=== PATIENT | male | born 2005 | race Caucasian/White ===

== ENCOUNTER 2024-08-12 15:22 | Observation (INO) | payer BC ==
[2024-08-12] VITALS (14 sets, daily range): BP systolic 114–146; BP diastolic 61–86
[~2024-08-12] VITALS: Ht 188 cm; Wt 145.2 kg
[2024-08-12 16:22] LABS: BASOPHILS ABSOLUTE AUTO 0.05 K/mm3 (0.00-0.23); BASOPHILS PERCENT AUTO 0 % (0-2); EOSINOPHILS ABSOLUTE AUTO 0.05 K/mm3 (0.00-0.68); EOSINOPHILS PERCENT AUTO 0 % (0-6); Hematocrit 42.7 % (37.0-53.0); Hemoglobin 15.2 g/dL (13.5-17.5); IMMATURE GRAN ABSOLUTE AUTO 0.06 K/mm3 (0.00-0.10); IMMATURE GRAN PERCENT AUTO 0 % (0-1); LYMPHOCYTES ABSOLUTE AUTO 2.07 K/mm3 (0.84-5.20); LYMPHOCYTES PERCENT AUTO 14 % (21-46); MONOCYTES ABSOLUTE AUTO 1.06 K/mm3 (0.16-1.47); MONOCYTES PERCENT AUTO 7 % (4-13); Mean Corpuscular HGB 30.5 pg (26.0-34.0); Mean Corpuscular HGB Conc 35.6 g/dL (31.5-36.5); Mean Corpuscular Volume 86 fL (80-100); Mean Platelet Volume 10.1 fL (9.1-12.4); NEUTROPHILS ABSOLUTE AUTO 11.88 K/mm3 (1.96-9.15); NEUTROPHILS PERCENT AUTO 78 % (41-73); Platelet Count 223 K/mm3 (150-400); RDW Coefficient Variation 12.4 % (11.7-14.2); RDW Standard Deviation 38.8 fL (35.1-46.3); Red Blood Cell Count 4.98 M/mm3 (4.30-5.90); White Blood Cell Count 15.17 K/mm3 (4.00-11.30)
[2024-08-12] MEDS ORDERED: NS 1,000 ML IV SCH (16:25)
[2024-08-12] MEDS ORDERED: Ketorolac Tromethamine 15mg Vial IV ONE (16:25)
[2024-08-12] MEDS ORDERED: Ampicillin Sod/Sulbactam Sod 3 GM in NS 100 ML IV ONE (16:25)
[2024-08-12 16:51] LABS: Albumin, Blood 3.8 g/dL (3.4-5.0); Albumin/Globulin Ratio 1.1 (0.8-1.8); Bilirubin, Total 1.1 mg/dL (0.1-1.0); Bun/Creatinine Ratio 15.1 (12.0-20.0); Calcium, Blood 9.1 mg/dL (8.5-10.1); Creatinine, Blood 0.73 mg/dL (0.60-1.20); Globulin, Blood 3.4 g/dL (2.2-4.0); Potassium, Blood 3.8 mmol/L (3.5-5.5); Total Protein, Blood 7.2 g/dL (6.4-8.2)
[2024-08-12] MEDS ORDERED: Bupivacaine 0.5% HCl 5 MG/ML 30MLVIAL ONE (17:12)
[2024-08-12] MEDS ORDERED: Acetaminophen 325 MG TABLET PO PRN (17:25)
[2024-08-12] MEDS ORDERED: FLU VACC TS2024-25(6MOS UP)/PF 45 MCG/0.5 ML SYRINGE IM SCH (17:30)
[2024-08-12] MEDS ORDERED: HYDROmorphone HCl/Pf 1MG SYR IV PRN (17:30)
[2024-08-12] MEDS ORDERED: OxyCODONE HCL 5 MG TAB PO PRN (17:30)
[2024-08-12] MEDS ORDERED: Ondansetron HCl 2 MG / ML 2ML Vial IV PRN (17:30)
[2024-08-12] MEDS ORDERED: Lactated Ringer's 1,000 ML IV SCH (17:30)
[2024-08-12] MEDS ORDERED: Lactated Ringer's 1,000 ML IV ONE (17:37)
[2024-08-12] MEDS ORDERED: Ketorolac Tromethamine 15mg Vial IV PRN (17:40)
[2024-08-12] MEDS ORDERED: Midazolam HCl 1MG / ML 2ML Vial ONE (17:48)
[2024-08-12] MEDS ORDERED: FentaNYL Citrate 50 MCG/ML 2 ML Injection ONE (17:48)
[2024-08-12] MEDS ORDERED: propofoL 40 ML IV ONE (17:48)
[2024-08-12] MEDS ORDERED: Ondansetron HCl 2 MG / ML 2ML Vial ONE (18:08)
[2024-08-12] MEDS ORDERED: Dexamethasone Sod Phos 10 MG/ML 1ML VIAL ONE (18:08)
[2024-08-12] MEDS ORDERED: Ketorolac Tromethamine 30mg Vial ONE (18:21)
[2024-08-12] MEDS ORDERED: Rocuronium Bromide 10 MG/ML 5ML Injection IV ONE (18:21)
[2024-08-12] MEDS ORDERED: Sugammadex Sodium 200 MG/2ML SDV (100 MG/ML) ONE (18:30)
--- NOTE | 2024-08-12 19:53 | NUR ---
PT ARRIVED FROM PACU A/O X4. PT TX SELF TO BED FROM [facility], REP MILD DIZZINESS WHEN FIRST UP. VSS, LUNGS CLEAR T/O. LAP SITES X3 TO ABD CDI W/EXOFEN STEPH, NO DRNG NOTED, ABD SOFT TO PALP. PT REP ABD PAIN 3/10, REP MIGUEL AT THIS TIME. PT ORIENTED TO ROOM CALL LIGHT, FAMILY IN ROOM.
[2024-08-12] MEDS ORDERED: Sennosides 8.6 MG Tab PO SCH (21:00)
[2024-08-13] VITALS: BP 120/63
--- NOTE | 2024-08-13 07:02 | NUR ---
POD 1 S/P LAP APPY. PT VSS T/O NIGHT. INCISIONS CDI, ABD SOFT TO PALP. PT REP PAIN MIGUEL 11/25, DECLINED NEED FOR PAIN MEDS. PT MIGUEL SM AMT PO, DENIED N/V, REP +FLATUS THIS AM, IS VOIDING URINE W/O DIFFICULTY. PLAN TO D/C HOME TODAY.
[2024-08-13] MEDS ORDERED: OXYC5 PO (08:23)
--- NOTE | 2024-08-13 08:51 | NUR ---
DISCHARGE NOTE THIS RN ASSUMED CARE AT APPROX 0715. PATIENT ALERT AND ORIENTED X4. COMMUNICATES NEEDS EFFECTIVELY. VSS. TOLERATING ROOM AIR, SATs >90%. RR EVEN, UNLABORED. POD 1 LAP APPY - X3 LAP SITES C/D/I. PAIN TOLERABLE. TOLERATING PO INTAKE. REPORTS FLATULENCE. VOIDING. MD ROBLERO ROUNDING THIS MORNING - DC ORDERED. IV REMOVED. DC EDUCATION PROVIDED - PATIENT AND HIS MOTHER STATE UNDERSTANDING. ASKS QUESTIONS NEEDED TO GAIN FURTHER UNDERSTANDING. HARD SCRIPT FOR PRESCRIBED NARCOTIC PROVIDED. PATIENT TRANSFERRED OFF UNIT TO PERSONAL VEHICLE VIA WHEELCHAIR AT APPROX 0845. PERSONAL BELONGINGS WITH PATIENT.
== END 2024-08-13 08:54 | disposition home or self-care (01) ==
LOC: ER 15:22 → SURS 17:25 → ER 17:40 → SURS 19:35
PROVIDERS: Student in an Organized Health Care Education/Training Program; ADMIT Surgery
PROC: 0DTJ4ZZ Resection of Appendix, Percutaneous Endoscopic Approach (ICD-10-PCS; principal; 2024-08-12 17:00)
DX: K35.30 Acute appendicitis with localized peritonitis, without perforation or gangrene (principal); K38.0 Hyperplasia of appendix
CPT/HCPCS: 80053; 85025; 88304; 96374-59; 96375; 99285-25; A9270; J0295; J1100; J1885; J2250; J2405; J2704; J3010; J7030; J7120